=== PATIENT | male | born 1945 | race Caucasian/White ===

== ENCOUNTER → 2016-09-05 | Outpatient (RCR) | payer MEDICARE, OTHER | LOC: M CR 08-12 08:21 | PROVIDERS: ATTEND Internal Medicine Cardiovascular Disease | DX: Z51.89 Encounter for other specified aftercare (principal); I49.01 Ventricular fibrillation; I50.9 Heart failure, unspecified ==

== ENCOUNTER → 2016-09-16 | Outpatient (REF) | payer MEDICARE, OTHER ==
[2016-09-16 10:52] LABS: BASO # 0.2 K/mm3 (0.0-0.2); EOS # 0.3 K/mm3 (0.0-0.50); EOS % 2.2 % (0.0-3.0); LYMPH # 6.9 K/mm3 (1.5-4.5); LYMPH % 45.8 % (24.0-44.0); MEAN CORPUSCULAR HEMOGLOBIN 29.1 pg (27.0-33.0); MEAN CORPUSCULAR HGB CONC 33.7 g/dl (32.0-36.5); MEAN CORPUSCULAR VOLUME 86.3 fl (80.0-96.0); MONO # 0.7 K/mm3 (0.0-0.8); MONO % 4.4 % (0.0-5.0); NEUTROPHILS # 6.5 K/mm3 (1.8-7.7); NEUTROPHILS % 42.9 % (36.0-66.0); RED CELL DISTRIBUTION WIDTH 13.9 % (11.5-14.5)
[2016-09-16 10:56] LABS: WHITE BLOOD COUNT 15.1 K/mm3 (4.0-10.0)
[2016-09-16 11:05] LABS: PERCENT SATURATION 21.3 % (19.7-50.0)
== END ==
LOC: M LAB REF 10:04
PROVIDERS: ATTEND Internal Medicine Hematology & Oncology
DX: D72.820 Lymphocytosis (symptomatic) (principal); C91.10 Chronic lymphocytic leukemia of B-cell type not having achieved remission

== ENCOUNTER 2016-09-21 08:27 | Outpatient (RCR) | payer MEDICARE, OTHER | END 2016-10-06 | LOC: M CR 08:27 | PROVIDERS: ATTEND Internal Medicine Cardiovascular Disease | DX: Z51.89 Encounter for other specified aftercare (principal); I49.01 Ventricular fibrillation ==

== ENCOUNTER 2016-10-07 08:27 | Outpatient (RCR) | payer MEDICARE, OTHER | END 2016-11-05 | LOC: M CR 08:27 | PROVIDERS: ATTEND Internal Medicine Cardiovascular Disease | DX: Z51.89 Encounter for other specified aftercare (principal); I49.01 Ventricular fibrillation ==

== ENCOUNTER → 2018-08-13 | Outpatient (CLI) | payer MEDICARE, BC ==
[~2018-08-13] MED LIST: ISOVUE-M 300 61% 15ML VIAL (Q9967) As Ordered ONE; LIDOCAINE 1% MDV 20ML VIAL As Ordered ONE
--- NOTE | 2018-08-13 14:25 | REP ---
CT CERVICAL MYELOGRAM WITH INTRATHECAL CONTRAST: HISTORY: Neck pain low back pain. Comparison is made with fluoroscopically obtained cervical myelography images from this date. FINDINGS: There is good of ossification of the cervical thecal sac. Cervical vertebral body heights are preserved. Alignment is normal with some straightening. There is degenerative disc narrowing and anterior osteophyte formation at C4-5, C5-6, and C6-7. Posterior osteophytic ridging is seen at C6-7 and C5-6. There is no evidence of cervical cord compression or cervical central canal stenosis. There is left posterior disc bulge at C3-C4 contributing to some left-sided neural foraminal narrowing at C3-4. No other cervical disc protrusion is appreciated. There is some mild uncovertebral spurring on the right at C6-7 and to a lesser extent at C5-6. Minimal uncovertebral spurring is seen on the left is C5-6 as well. There are minimal facet hypertrophic osteoarthritic changes. IMPRESSION: Mild degenerative spondylosis changes. Left posterior and foraminal disc bulge at C3-4 contributing to mild C3-4 neural foraminal narrowing. Uncovertebral spurring and minimal neural foraminal narrowing at C5-6 and C6-7 as discussed above. No cord compression lesion is seen. Electronically Signed by Alfredo Wang MD 08/13/2018 05:13 P
--- NOTE | 2018-08-13 14:34 | REP ---
CT LUMBAR MYELOGRAM WITH INTRATHECAL CONTRAST: HISTORY: Low back pain right leg pain greater than left. TECHNIQUE: Injection procedure is performed and dictated separately. Helical scanning is acquired. Axial and coronal MPR images are generated and reviewed. Comparison is made with accompanying fluoroscopically obtained myelographic images. FINDINGS: Lumbar vertebral body heights are preserved. Alignment is normal. There is good opacification of the entire lumbosacral thecal sac. The tip of the conus medullaris is normal in position and appearance at L1. The T12-L1 and L1-2 disc level show no significant finding. At L2-3, canal size is borderline developmentally. There is minimal diffuse disc bulging. The AP dimension of the thecal sac at this level is 10.6 mm. No neural foraminal encroachment is appreciated. At L3-L4, there is degenerative narrowing of the disc with anterior spurring. There is mild diffuse bulging. There is severe central canal stenosis at L3-4 due to disc bulging, developmentally short pedicles, and ligamentum flavum and facet hypertrophy. Contrast is almost completely effaced from the thecal sac at the L3-4 level. AP dimension of the thecal sac is 8.8 mm. There is right-sided neural foraminal encroachment due to facet hypertrophy. At L4-5, there is moderate to marked central canal stenosis noted due to developmentally short pedicles, diffuse disc bulging, along with ligamentum flavum and facet hypertrophy. There is moderate bilateral facet hypertrophy and L4-5, left greater than right. Contrast is compressed from the thecal sac at the L4-5. Its midline AP dimension is 7 mm at the L4-5 level. There is no bony neural foraminal encroachment. There is no evidence of spondylolysis. There is a minimal 2 mm degenerative spondylolisthesis at L4-5. At L5-S1, there is no evidence of disc protrusion. There is moderate osteoarthritic facet hypertrophy bilaterally. IMPRESSION: Degenerative spondylosis changes as above. The dominant abnormality is severe central canal stenosis at L3-4 and moderate to severe central canal stenosis at L4-5 due to combination of developmentally short pedicles and diffuse disc bulging with ligamentum flavum and facet hypertrophy. There is right-sided foraminal encroachment at L3-4. Electronically Signed by Alfredo Wang MD 08/13/2018 05:13 P
--- NOTE | 2018-08-13 15:38 | REP ---
Cervical and lumbar myelogram under fluoroscopic guidance. The procedure was performed by OLGA Brown, under the personal supervision of Dr. Wang. Procedure: The risks and benefits of the procedure were explained to the patient and informed consent was obtained the verbally and written. Directly prior to the start of the procedure, a formal timeout was completed in the procedure room. The patient was placed prone on the fluoroscopy table with circumferential lower abdominal and pelvic shielding. The L 2-3 interspinous level was localized and confirmed fluoroscopically, and the skin was marked dorsally at this level. The skin was prepped and draped in the usual sterile fashion. 6 mL of 1% lidocaine was utilized for local anesthetic. An 18 gauge 3.5 inches spinal needle was advanced without significant difficulty into the cerebrospinal space at the L 2-3 interspinous level. 12 mL of Isovue 300 was injected into the spinal column. Findings: There is good opacification of the lumbar thecal sac. There is a hour glass like deformity at the level of the somewhat narrowed L3-4 disc consistent with central canal stenosis. This is moderate. There is also evidence of central canal stenosis at L4-5 with limited contrast filling at these two disc levels. No abnormalities noted in the thoracic thecal sac. There is good opacification of the cervical thecal sac. There is limited filling of the left cervical root sleeves at C6-7 and C5-6. There is a ventral extradural defect at the level of the narrowed C4-5 disc on lateral images. The patient tolerated the procedure well and there were no immediate complications. 1.1 minutes of fluoroscopy time was utilized for this procedure. Reviewed by OLGA Mendoza 08/13/2018 01:46 P Electronically Signed by Alfredo Wang MD 08/13/2018 03:29 P
== END ==
LOC: M RADPRO 09:45
PROVIDERS: ATTEND Physician Assistant Medical
DX: M54.5 Low back pain (principal); M48.061 Spinal stenosis, lumbar region without neurogenic claudication; M51.16 Intervertebral disc disorders with radiculopathy, lumbar region; M50.30 Other cervical disc degeneration, unspecified cervical region; Z79.899 Other long term (current) drug therapy; Z88.8 Allergy status to other drugs, medicaments and biological substances; Z87.891 Personal history of nicotine dependence
CPT/HCPCS: 62305; 72125; 72131; Q9967

== ENCOUNTER → 2021-08-17 | Outpatient (REF) | payer MEDICARE, BC ==
[2021-08-17 10:21] LABS: LUTEINIZING HORMONE 2.2 mIU/mL (3.1-34.6); PROLACTIN 6.8 NG/ML (2.1-17.7)
== END ==
LOC: M WUC 08:23
DX: E29.1 Testicular hypofunction (principal); I48.0 Paroxysmal atrial fibrillation

== ENCOUNTER → 2023-08-11 | Outpatient (CLI) | payer MEDICARE ==
[~2023-08-11] MED LIST changes: +ALLO100T PO; +CARV25TA PO; +CO Q100C10 PO; +ECOT81TA5 PO; +FURO20TA2 PO; -ISOVUE-M 300 61% 15ML VIAL (Q9967) As Ordered ONE; +JARD1TAB PO; -LIDOCAINE 1% MDV 20ML VIAL As Ordered ONE; +LOSA100T46 PO; +METF500T13 PO; +POTA1TAB23 PO; +ROSU10TA61 PO
== END ==
LOC: M ONCR 14:06
PROVIDERS: ATTEND General Practice
DX: C44.320 Squamous cell carcinoma of skin of unspecified parts of face (principal); C91.10 Chronic lymphocytic leukemia of B-cell type not having achieved remission; Z95.1 Presence of aortocoronary bypass graft

== ENCOUNTER → 2023-09-06 | Outpatient (RCR) | payer MEDICARE, BC | LOC: M ONCR 08-16 10:01 | PROVIDERS: ATTEND General Practice | DX: Z51.0 Encounter for antineoplastic radiation therapy (principal); C44.320 Squamous cell carcinoma of skin of unspecified parts of face ==

== ENCOUNTER 2023-09-11 08:26 | Outpatient (RCR) | payer MEDICARE, BC | END 2023-10-07 | LOC: M ONCR 08:26 | PROVIDERS: ATTEND General Practice | DX: Z51.0 Encounter for antineoplastic radiation therapy (principal); C44.320 Squamous cell carcinoma of skin of unspecified parts of face ==